=== PATIENT | female | born 1980 | race Caucasian/White ===

== ENCOUNTER 2021-09-11 07:17 | Emergency (ER) | payer SELFPAY ==
[2021-09-11] MEDS ORDERED: Ibuprofen 800 MG TAB ONE (07:44)
[2021-09-11 22:19] LABS: SARS-CoV-2 PCR by NAA DETECTED (NotDetected)
== END 2021-09-11 07:58 | disposition home or self-care (01) ==
LOC: MADERS 07:17
DX: U07.1 COVID-19 (principal); J06.9 Acute upper respiratory infection, unspecified; E11.9 Type 2 diabetes mellitus without complications; E78.00 Pure hypercholesterolemia, unspecified; E78.5 Hyperlipidemia, unspecified; I10 Essential (primary) hypertension; Z79.84 Long term (current) use of oral hypoglycemic drugs; Z79.899 Other long term (current) drug therapy
CPT/HCPCS: 99283; U0003; U0005

== ENCOUNTER 2024-01-22 19:55 | Emergency (ER) | payer OTHER, SELFPAY | END 2024-01-22 21:27 | disposition home or self-care (01) | LOC: MADERS 19:55 | DX: R55 Syncope and collapse (principal); E11.9 Type 2 diabetes mellitus without complications; I10 Essential (primary) hypertension; E78.00 Pure hypercholesterolemia, unspecified; Z79.84 Long term (current) use of oral hypoglycemic drugs; Z79.899 Other long term (current) drug therapy | CPT/HCPCS: 36416; 70450 ==